=== PATIENT | male | born 1950 | race Caucasian/White ===

== ENCOUNTER → 2016-11-27 | Outpatient (CLI) | payer OTHER ==
[~2016-11-27] MED LIST: ALBUTEROL INHALER INH; AMLO10TA PO; AUGM875T27 PO; FOLI1TAB2 PO; LIPITOR; NITR4TASL SL; SERAX PO; VICODIN PO; VITA100T2 PO
--- NOTE | 2016-11-27 08:27 | REP ---
Clinical: Back pain. Technique: AP lateral and coned-down views of the lumbosacral spine. Comparison: 05/25/2015. Findings: Moderate to advanced multilevel degenerative disc osteophyte complexes are noted throughout the lower thoracic and lumbosacral spine which appear relatively stable. Findings include osteophytosis, endplate sclerosis, disc space narrowing and hypertrophic facet changes. Alignment and lordosis maintained. There is no evidence for acute fracture / compression injury or subluxation. Impression: Stable moderate to advanced multilevel degenerative changes similar to 05/25/2015. No acute fracture / compression injury or subluxation. Signed by Abdulkadir Garrido MD 11/27/2016 08:19 A
[2016-11-27 09:05] LABS: ALBUMIN 3.7 GM/DL (3.2-5.2); ALBUMIN/GLOBULIN RATIO 1.12 (1.00-1.93); ALKALINE PHOSPHATASE 78 U/L (45-117); ALT/SGPT 22 U/L (12-78); ANION GAP 7 MEQ/L (8-16); AST/SGOT 16 U/L (15-37); BILIRUBIN,TOTAL 0.6 MG/DL (0.2-1.0); BLOOD UREA NITROGEN 14 MG/DL (7-18); CALCIUM LEVEL 8.8 MG/DL (8.8-10.2); CARBON DIOXIDE LEVEL 29 MEQ/L (21-32); CHLORIDE LEVEL 105 MEQ/L (98-107); CREATININE FOR GFR 0.83 MG/DL (0.70-1.30); GLOMERULAR FILTRATION RATE > 60.0 (>49); GLUCOSE, FASTING 93 MG/DL (80-110); POTASSIUM SERUM 4.3 MEQ/L (3.5-5.1); SODIUM LEVEL 141 MEQ/L (136-145)
[2016-11-27 11:34] LABS: BASO # 0.1 K/mm3 (0.0-0.2); BASO % 0.5 % (0.0-1.0); LARGE UNSTAINED CELL # 0.2 K/mm3 (0.0-0.4); LARGE UNSTAINED CELL % 1.9 % (0.0-4.0); LYMPH # 3.6 K/mm3 (1.5-4.5); LYMPH % 29.6 % (24.0-44.0); MEAN CORPUSCULAR HEMOGLOBIN 32.2 pg (27.0-33.0); MEAN CORPUSCULAR HGB CONC 34.2 g/dl (32.0-36.5); MEAN CORPUSCULAR VOLUME 94.2 fl (80.0-96.0); MONO # 0.7 K/mm3 (0.0-0.8); MONO % 5.7 % (0.0-5.0); NEUTROPHILS # 6.7 K/mm3 (1.8-7.7); NEUTROPHILS % 54.3 % (36.0-66.0); PLATELET COUNT, AUTOMATED 248 k/mm3 (150-450); RED CELL DISTRIBUTION WIDTH 12.9 % (11.5-14.5); WHITE BLOOD COUNT 12.3 K/mm3 (4.0-10.0)
== END ==
LOC: M LAB 07:44
PROVIDERS: ATTEND Family Medicine Addiction Medicine
DX: I10 Essential (primary) hypertension (principal); M54.5 Low back pain

== ENCOUNTER → 2017-01-11 | Outpatient (CLI) | payer OTHER ==
[~2017-01-11] MED LIST changes: +ISOVUE-370 76% 100ML VIAL (Q9967) As Ordered ONE
--- NOTE | 2017-01-12 07:36 | REP ---
CT ANGIOGRAM OF THE CAROTIDS WITH IV CONTRAST: HISTORY: Carotid stenosis. Comparison study is a duplex carotid sonography from June 01, 2016. CT contrast dose: 75 mL of Isovue [address] TECHNIQUE: Helical scanning is acquired and 2 mm high resolution axial images are generated. Coronal and sagittal multiplanar re-formation images are regenerated. Coronal and sagittal MIP images are generated. Curved plane MPR images are obtained in a rotational fashion about the lumen of each carotid artery. In addition, surface rendered 3D imaging is generated. CT ANGIOGRAPHIC FINDINGS: There is some atherosclerotic vascular calcification at the origin of the innominate artery and the left subclavian artery from the thoracic aorta. Minimal calcification at the origin of the left internal carotid. The common carotid arteries are unremarkable bilaterally. On the right, there is moderate calcific and soft plaquing involving the bulb and proximal ICA producing 65% narrowing in the lumen of the proximal ICA within the plaque on the right side. The distal ICA on the right is unremarkable. There is some vascular calcification at the carotid siphon on the right. On the left, there is moderate to advanced mixed plaquing in the proximal ICA and bulb. There is a nearly pinpoint stenosis focally in the proximal ICA. The ICA lumen measures 2 mm at the level of the focal stenosis. Proximal to the stenosis it measures 11 mm. This is compatible with an 82% stenosis. The distal ICA on the left is unremarkable. Minimal atherosclerotic plaquing is seen in this carotid siphon on the left. IMPRESSION: 1. 82% focal stenosis in the left internal carotid artery, 1.6 cm from its origin from the carotid bulb. 2. 65% narrowing due to mixed plaquing in the proximal ICA on the right side. Signed by Anthony Boland MD 01/12/2017 08:13 A
== END ==
LOC: M RAD 17:59
PROVIDERS: ATTEND Surgery
DX: I65.22 Occlusion and stenosis of left carotid artery (principal)
CPT/HCPCS: 70498; Q9967

== ENCOUNTER → 2017-03-14 | Outpatient (CLI) | payer OTHER ==
[~2017-03-14] MED LIST changes: -AUGM875T27 PO; +AUGM875T28 PO; -FOLI1TAB2 PO; +FOLI1TAB4 PO; -ISOVUE-370 76% 100ML VIAL (Q9967) As Ordered ONE
--- NOTE | 2017-03-15 15:10 | ECGEPIP ---
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 Consider inferolateral myocardial ischemia. Decreased heart rate and more extensive repolarization abnormalities compared with 11/11/2014. Electronically Signed On 03-15-2017 15:10:14 EDT by Rajinder Sepulveda
== END ==
LOC: M EKG 10:21
PROVIDERS: ATTEND Family Medicine Addiction Medicine
DX: I10 Essential (primary) hypertension (principal)

== ENCOUNTER → 2017-03-14 | Outpatient (REF) | payer OTHER ==
[2017-03-14 09:29] LABS: BASO # 0.1 K/mm3 (0.0-0.2); BASO % 0.8 % (0.0-1.0); EOS # 0.5 K/mm3 (0.0-0.50); EOS % 4.1 % (0.0-3.0); LARGE UNSTAINED CELL # 0.2 K/mm3 (0.0-0.4); LARGE UNSTAINED CELL % 1.8 % (0.0-4.0); LYMPH # 3.2 K/mm3 (1.5-4.5); LYMPH % 26.6 % (24.0-44.0); MEAN CORPUSCULAR HEMOGLOBIN 32.9 pg (27.0-33.0); MEAN CORPUSCULAR HGB CONC 34.3 g/dl (32.0-36.5); MEAN CORPUSCULAR VOLUME 95.9 fl (80.0-96.0); MONO # 0.7 K/mm3 (0.0-0.8); MONO % 6.1 % (0.0-5.0); NEUTROPHILS # 7.3 K/mm3 (1.8-7.7); NEUTROPHILS % 60.5 % (36.0-66.0); PLATELET COUNT, AUTOMATED 245 k/mm3 (150-450); RED CELL DISTRIBUTION WIDTH 12.9 % (11.5-14.5)
[2017-03-14 09:36] LABS: INR 0.97
[2017-03-14 09:43] LABS: ALBUMIN 3.6 GM/DL (3.2-5.2); ALBUMIN/GLOBULIN RATIO 1.16 (1.00-1.93); ALKALINE PHOSPHATASE 82 U/L (45-117); ALT/SGPT 15 U/L (12-78); ANION GAP 5 MEQ/L (8-16); AST/SGOT 11 U/L (15-37); BILIRUBIN,TOTAL 0.4 MG/DL (0.2-1.0); BLOOD UREA NITROGEN 12 MG/DL (7-18); CALCIUM LEVEL 9.2 MG/DL (8.8-10.2); CARBON DIOXIDE LEVEL 30 MEQ/L (21-32); CHLORIDE LEVEL 106 MEQ/L (98-107); CREATININE FOR GFR 0.88 MG/DL (0.70-1.30); GLOMERULAR FILTRATION RATE > 60.0 (>49); GLUCOSE, FASTING 104 MG/DL (80-110); POTASSIUM SERUM 4.5 MEQ/L (3.5-5.1); SODIUM LEVEL 141 MEQ/L (136-145); TOTAL PROTEIN 6.7 GM/DL (6.4-8.2)
== END ==
LOC: M LAB REF 09:19
PROVIDERS: ATTEND Family Medicine Addiction Medicine
DX: I10 Essential (primary) hypertension (principal)

== ENCOUNTER → 2017-03-15 | Outpatient (CLI) | payer OTHER ==
--- NOTE | 2017-03-15 18:35 | ECHO ---
DATE OF PROCEDURE: 03/15/2017 REFERRING PHYSICIAN: Levi Montemayor. INDICATION: Aortic stenosis. Study was performed on March 15 on outpatient basis. HEIGHT: 160 cm. WEIGHT: 77 kg. DIMENSIONS: IVS: 1.2 LV: 4.7 LVPW: 1.2 LA: 4.8 Aorta: 3.1 FINDINGS: The study is of acceptable technical quality even though parasternal views are very limited. Left ventricle is of normal size and contractility with estimated EF 65-70%. Mild left ventricular hypertrophy is noted. Right ventricle does not appear enlarged. Left atrium is moderately enlarged, right atrium is probably normal but the visualization was limited. No pericardial effusion is noted. Aortic valve is heavily calcific but I cannot comment on details of its anatomy due to limitations of the imaging. There are also degenerative abnormalities of the mitral valve with mitral annular calcifications. Mobility of mitral leaflets is preserved. Tricuspid valve appears normal. Pulmonic valve was not seen. Inferior vena cava is dilated but collapses with respiration indicative of likely mildly elevated central venous pressure. Aortic root is normal. Aortic arch and abdominal aorta were not visualized. Doppler interrogation of aortic valve reveals trivial insufficiency and severe if not critical stenosis. Peak gradient across the valve is 83 and mean gradient 53 mmHg. Calculated aortic valve area is 0.5 cm2. There is mild mitral insufficiency and mild tricuspid insufficiency. Calculated pulmonary artery pressure is normal mildly elevated. Mitral inflow pattern and tissue Doppler imaging of mitral annulus reveal pseudo normal filling pattern indicative of likely elevated left ventricular end-diastolic pressure. CONCLUSIONS: 1. Study is of acceptable technical quality. 2. Normal LV size with mild LVH and preserved LV systolic function. Grade 2 diastolic dysfunction. 3. Calcific aortic stenosis, likely severe if not critical (mean gradient 53 mmHg, calculated aortic valve area 0.5 cm square). 4. No further significant valvular disease. 5. Likely elevated central venous pressure but normal mildly elevated pulmonary artery pressure. COMMENT: Subacute bacterial endocarditis (SBE) prophylaxis is not recommended. If any symptoms, the patient should be considered for aortic valve replacement. MTDD
== END ==
LOC: M CARPUL 08:40
PROVIDERS: ATTEND Family Medicine Addiction Medicine
DX: I35.0 Nonrheumatic aortic (valve) stenosis (principal)

== ENCOUNTER → 2017-05-02 | Outpatient (CLI) | payer OTHER ==
[2017-05-02 10:44] LABS: BASO # 0.1 K/mm3 (0.0-0.2); BASO % 0.6 % (0.0-1.0); EOS # 0.5 K/mm3 (0.0-0.50); EOS % 5.4 % (0.0-3.0); LARGE UNSTAINED CELL # 0.2 K/mm3 (0.0-0.4); LARGE UNSTAINED CELL % 1.9 % (0.0-4.0); LYMPH # 2.9 K/mm3 (1.5-4.5); LYMPH % 29.3 % (24.0-44.0); MEAN CORPUSCULAR HEMOGLOBIN 32.8 pg (27.0-33.0); MEAN CORPUSCULAR VOLUME 93.7 fl (80.0-96.0); MONO # 0.6 K/mm3 (0.0-0.8); MONO % 6.5 % (0.0-5.0); NEUTROPHILS # 5.5 K/mm3 (1.8-7.7); NEUTROPHILS % 56.3 % (36.0-66.0); PLATELET COUNT, AUTOMATED 222 k/mm3 (150-450); RED CELL DISTRIBUTION WIDTH 12.7 % (11.5-14.5); WHITE BLOOD COUNT 9.8 K/mm3 (4.0-10.0)
[2017-05-02 11:11] LABS: ANION GAP 6 MEQ/L (8-16); BLOOD UREA NITROGEN 11 MG/DL (7-18); CALCIUM LEVEL 9.1 MG/DL (8.8-10.2); CARBON DIOXIDE LEVEL 32 MEQ/L (21-32); CHLORIDE LEVEL 104 MEQ/L (98-107); GLOMERULAR FILTRATION RATE > 60.0 (>49); GLUCOSE, FASTING 102 MG/DL (80-110); POTASSIUM SERUM 4.2 MEQ/L (3.5-5.1); SODIUM LEVEL 142 MEQ/L (136-145)
== END ==
LOC: M LAB 09:15
PROVIDERS: ATTEND Internal Medicine Cardiovascular Disease
DX: R93.1 Abnormal findings on diagnostic imaging of heart and coronary circulation (principal)

== ENCOUNTER → 2017-06-02 | Outpatient (CLI) | payer OTHER ==
[2017-06-02 08:34] LABS: MEAN CORPUSCULAR HEMOGLOBIN 32.1 pg (27.0-33.0); MEAN CORPUSCULAR HGB CONC 33.5 g/dl (32.0-36.5); MEAN CORPUSCULAR VOLUME 95.7 fl (80.0-96.0); PLATELET COUNT, AUTOMATED 400 10^3/uL (150-450); RED CELL DISTRIBUTION WIDTH 14.4 % (11.5-14.5); WHITE BLOOD COUNT 16.8 10^3/uL (4.0-10.0)
[2017-06-02 08:40] LABS: ADD MANUAL DIFFER YES; DIFF SLIDE NUMBER 121
[2017-06-02 09:02] LABS: INR 1.6
[2017-06-02 09:27] LABS: EOSINOPHILS 2 % (0-5)
== END ==
LOC: M LAB 08:05
PROVIDERS: ATTEND Physician Assistant
DX: I48.91 Unspecified atrial fibrillation (principal)

== ENCOUNTER → 2019-03-24 | Outpatient (REF) | payer MEDICARE, MEDICAID ==
[~2019-03-24] MED LIST changes: +FOLI1TAB11 PO; -FOLI1TAB4 PO; -VITA100T2 PO; +VITA100T8 PO
[2019-03-24 12:45] LABS: BASO # 0.1 10^3/uL (0.0-0.2); EOS # 0.3 10^3/uL (0.0-0.50); EOS % 2.7 % (0.0-3.0); HEMATOCRIT 56.2 % (42.0-52.0); HEMOGLOBIN 18.8 g/dl (13.5-17.5); LYMPH # 3.5 10^3/uL (1.5-4.5); LYMPH % 29.8 % (24.0-44.0); MEAN CORPUSCULAR HEMOGLOBIN 32.6 pg (27.0-33.0); MEAN CORPUSCULAR HGB CONC 33.5 g/dl (32.0-36.5); MEAN CORPUSCULAR VOLUME 97.4 fl (80.0-96.0); MONO # 0.7 10^3/uL (0.0-0.8); MONO % 5.9 % (0.0-5.0); NEUTROPHILS % 60.3 % (36.0-66.0); PLATELET COUNT, AUTOMATED 206 10^3/uL (150-450); RED BLOOD COUNT 5.77 10^6/uL (4.30-6.10); WHITE BLOOD COUNT 11.7 10^3/uL (4.0-10.0)
[2019-03-24 13:00] LABS: ALBUMIN 3.8 GM/DL (3.2-5.2); ALT/SGPT 22 U/L (12-78); BILIRUBIN,TOTAL 0.4 MG/DL (0.2-1.0); BLOOD UREA NITROGEN 17 MG/DL (7-18); CALCIUM LEVEL 9.1 MG/DL (8.8-10.2); CARBON DIOXIDE LEVEL 31 MEQ/L (21-32); CHLORIDE LEVEL 107 MEQ/L (98-107); CHOLESTEROL LEVEL 231 MG/DL (<200); CREATININE FOR GFR 0.99 MG/DL (0.70-1.30); GLOMERULAR FILTRATION RATE > 60.0 (>49); GLUCOSE, FASTING 94 MG/DL (70-100); HDL CHOLESTEROL 35 MG/DL (>40); LDL CHOLESTEROL 164 MG/DL (<100); NON-HDL-C 196 MG/DL; POTASSIUM SERUM 4.8 MEQ/L (3.5-5.1); SODIUM LEVEL 143 MEQ/L (136-145); TOTAL PROTEIN 7.3 GM/DL (6.4-8.2); TRIGLYCERIDES LEVEL 162 MG/DL (<150)
[2019-03-24 13:04] LABS: HEMOGLOBIN A1c 6.2 %
== END ==
LOC: M LAB REF 12:11
PROVIDERS: ATTEND Family Medicine Addiction Medicine
DX: Z00.00 Encounter for general adult medical examination without abnormal findings (principal); E07.9 Disorder of thyroid, unspecified; E78.00 Pure hypercholesterolemia, unspecified

== ENCOUNTER → 2019-11-12 | Outpatient (CLI) | payer MEDICARE, OTHER, MEDICAID ==
--- NOTE | 2019-11-14 02:14 | ECWPNPC ---
PATIENT NAME: LIZ OSBORNE : 1950 GENDER: MALE VISIT DATE: 11/12/2019 DISCHARGE DATE: 11/12/19 1111 VISIT LOCKED DATE TIME: PHYSICIAN: ENZO BURKETT RESOURCE: ENZO BURKETT REASON FOR APPOINTMENT 1. BACK PAIN HISTORY OF PRESENT ILLNESS PAIN SCREENING: PATIENT HAS A COMPLAINT OF ACUTE OR CHRONIC PAIN :YES LOCATION OF PAIN:OTHER: LOWER LEFT BACK SIDE THRU TO THE LEG INTENSITY OF PAIN (SCALE OF 1 TO 10):8 WHAT DOES YOUR PAIN FEEL LIKE:ACHING DURATION:INTERMITTENT, AWAKENS FROM SLEEP PLAN/GOALS/TREATMENT/INTERVENTION/FOLLOW UP:SEE PLAN 69-YEAR-OLD MALE IN FOR INITIAL PAIN CONSULT. HE DENIES HISTORY OF DIRECT TRAUMA TO THE BACK. HE IS CURRENTLY ON HYDROCODONE AND ADMITS THAT THIS IS HELPFUL HOWEVER HE IS INTERESTED IN HAVING A PROCEDURE DONE TO HELP ALLEVIATE HIS PAIN SYMPTOMS MORE. HE RATES HIS PAIN CURRENTLY AT A 8 OUT OF 10 AND DESCRIBES IT ACHING. HE DOES ADMIT TO RADICULAR SYMPTOMS DOWN THE LEFT LEG. THE PAIN HAS BEEN PRESENT FOR SEVERAL YEARS HIS LAST IMAGING DONE IN 2017. FALL RISK SCREENING: SCREENING :NO FALLS REPORTED IN THE LAST YEAR CURRENT MEDICATIONS TAKING SIMVASTATIN 10 MG TABLET 1 TABLET IN THE EVENING ORALLY ONCE A DAY TAKING LISINOPRIL 10 MG TABLET 1 TABLET ORALLY ONCE A DAY TAKING ASPIR-LOW 81 MG TABLET DELAYED RELEASE 1 TABLET ORALLY ONCE A DAY TAKING HYDROCODONE-ACETAMINOPHEN 5-325 MG TABLET 1 TABLET NEEDED ORALLY EVERY 6 HRS MEDICATION LIST REVIEWED AND RECONCILED WITH THE PATIENT PAST MEDICAL HISTORY HYPERTENSION STROKE- OPEN HEART SURGERY ALLERGIES N.K.D.A. SURGICAL HISTORY OPEN HEART SURGERY- PIG VALVE 2017 LEFT CAROTID ENDARARECTOMY 2018 TESTICUALR SURGERY AFTER INJURY 1979 FAMILY HISTORY FATHER: 64 YRS MOTHER: 1 SON(S) , 3 DAUGHTER(S) - HEALTHY. FATHER- STROKE MOTHER- CANCER 3 SIBLINGS - HEART ISSUES, 2 SISTERS COPD. SOCIAL HISTORY GENERAL: TOBACCO USE ARE YOU A:CURRENT SMOKER ARE YOU INTERESTED IN QUITTING?NOT READY TO QUIT COUNSELED THE PATIENT ON SMOKING EFFECTS, EDUCATION [id number]/11/2020 HOW MANY CIGARETTES A DAY DO YOU SMOKE?31 OR MORE HOW SOON AFTER YOU WAKE UP DO YOU SMOKE YOUR FIRST CIGARETTE?6-30 MIN HOW OFTEN DO YOU SMOKE CIGARETTES?EVERY DAY PATIENT COUNSELED ON THE DANGERS OF TOBACCO USE AND URGED TO QUIT:11/12/2019 SMOKING CESSATION INFORMATION GIVEN11/12/2019 VAPORNO E-CIGARETTENO OTHERS AT HOME: SPOUSE. EDUCATION LEVEL OF EDUCATION:[employer] DIET: REGULAR. LANGUAGE LANGUAGES SPOKEN:TURKISH RECREATIONAL DRUG USE DRUG USE?NO PATIENT DENIES ABUSE OR MISSUSED OF ANY MEDICATION DENIES PATIENT DENIES USE OF ANY ILLEGAL SUBSTANCE INCLUDING MARIJUANA OR COCAINE DENIES EXERCISE: NO REGULAR EXERCISE. LEARNING BARRIERS / SPECIAL NEEDS BARRIERS TO LEARNING?NO HEARING IMPAIRED?NO VISION IMPAIRED?YES :CORRECTIVE LENSES COGNITIVELY IMPAIRED?NO READINESS TO LEARN?YES LEARNING PREFERENCES?NO LEARNING CAPABILITIES PRESENT?YES EMOTIONAL BARRIERS?NO SPECIAL DEVICES?NO SKATE HOP NEEDED?NO PAIN CLINIC PFS, CLERGY, PUBLIC HEALTH REFERRALS PFS REFERRAL NEEDED?NO CLERGY REFERRAL NEEDED?NO PUBLIC HEALTH REFERRAL NEEDED?NO WAS THE PROVIDER NOTIFIED OF ANY PERTINENT INFO?YES HAS THE PATIENT BEEN EDUCATED REGARDING HIS/HER PLAN OF CARE?YES HAS THE PATIENT BEEN EDUCATED REGARDING PAIN, THE RISK FOR PAIN, THE IMPORTANCE OF EFFECTIVE PAIN MANAGEMENT, AND THE PAIN ASSESSMENT PROCESS?YES LATEX QUESTIONNAIRE LATEX ALLERGY : HAVE YOU EVER DEVELOPED ANY TYPE OF REACTION AFTER HANDLING LATEX PRODUCTS SUCH RUBBER GLOVES, CONDOMS, DIAPHRAGMS, BALLOONS, SOCKS, OR UNDERWEAR?NO LATEX ALLERGY : HAVE YOU EVER DEVELOPED ANY TYPE OF REACTION DURING OR AFTER DENTAL APPOINTMENT, VAGINAL/RECTAL EXAMINATION, SURGICAL PROCEDURE, OR ANY OTHER EXPOSURE?NO LATEX RISK : HAVE YOU EVER HAD ANY DIFFICULTY BREATHING OR HIVES AFTER EATING OR HANDLING ANY FRUITS, OR VEGETABLES; SUCH KIWI, BANANAS, STONE FRUITS, OR CHESTNUTSNO LATEX RISK : DO YOU HAVE A PREVIOUS PERSONAL HISTORY OF MORE THAN NINE SURGERIES, SPINA BIFIDA, OR REPEATED CATHERIZATIONS? NO LATEX RISK : ARE YOU FREQUENTLY EXPOSED TO LATEX PRODUCTS IN YOUR OCCUPATION?NO DATE ASKED : 11/11/2019 CAFFEINE CAFFEINE USE?YES HOW OFTEN AND HOW MUCH? 3/DAY ADVANCE DIRECTIVE ADVANCE DIRECTIVE DISCUSSED WITH PATIENT:YES HCP- - BILL MANDAEN MANDAEN NO PROTESTANT BELIEFS THAT WOULD IMPACT HEALTH CARE. MARITAL STATUS: . ALCOHOL SCREENING DID YOU HAVE A DRINK CONTAINING ALCOHOL IN THE PAST YEAR?NO POINTS0 INTERPRETATIONNEGATIVE OCCUPATION: DISABELED. HOSPITALIZATION/MAJOR DIAGNOSTIC PROCEDURE SURGERIES STROKE 2013 REVIEW OF SYSTEMS REVIEWED BY: PROVIDER: BELL MARCANO . CONSTITUTIONAL: ANY CHANGE IN YOUR MEDICAL CONDITION? NO . CHILLS NO . FEVER NO . INFECTION: DO YOU HAVE NEW INFECTIONS? NO . DO YOU HAVE HISTORY OF MRSA? NO . MUSCULOSKELETAL: ANY NEW PATTERNS OF PAIN OR NUMBNESS? NO . SYTEMIC LUPUS NO . GASTROENTEROLOGY: ANY NEW CHANGE IN BOWEL CONTROL? NO . BARRETTS ESOPHAGUS NO . CIRRHOSIS NO . HEPATITIS NO . LIVER FAILURE NO . ACID REFLUX NO . UNEXPLAINED WEIGHT LOSS NO . GENITOURINARY: ANY NEW CHANGE IN BLADDER CONTROL? NO . IS THERE A CHANCE YOU COULD BE ? NO . HEMATOLOGY/LYMPH: DO YOU TAKE ANY BLOOD THINNERS? (FOR EXAMPLE- COUMADIN, PLAVIX, AGGRENOX, PLATEL, PRADAXA, OR XARELTO) NO . WHEN WAS YOUR LAST DOSE? DATE: TIME: . LOW PLATELET COUNT NO . SICKLE CELL DISEASE NO . VON WILLIEBRANDS NO . FACTOR V LEIDEN NO . THALLASEMIA NO . ANEMIA NO . EASY BRUISING NO . NEUROLOGY: HAVE YOU FALLEN IN THE PAST 12 MONTHS? NO . ANY NEW EXTREMITY NUMBNESS OR WEAKNESS? NO . HEAD INJURY NO . DEMENTIA NO . CEREBRAL PALSY NO . MULTIPLE SCLEROSIS NO . DIZZINESS NO . HEADACHE NO . STROKES NO . VERTIGO NO . CARDIOLOGY: DO YOU HAVE A PACEMAKER OR DEFIBRILLATOR? NO . ANGINA NO . HEART ATTACK NO . HEART SURGERY NO . CONGESTIVE HEART FAILURE/FLUID OVERLOAD NO . CHEST PAIN NO . HIGH BLOOD PRESSURE NO . IRREGULAR HEART BEAT NO . RESPIRATORY: HAVE YOU BEEN SICK IN THE PAST WEEK? NO . FEVER NO . FLU LIKE SYMPTOMS? NO . CPAP NO . BYPAP NO . ASTHMA NO . EMPHYSEMA NO . CHRONIC LUNG DISEASES NO . SHORTNESS OF BREATH ON EXERTION NO . COUGH NO . SNORING NO . INTEGUMENTARY: DO YOU HAVE ANY RASHES OR OPEN SORES? NO . ALLERGIC/IMMUNO: ARE YOU ALLERGIC TO IV DYE? NO . ANY NEW ALLERGIES? NO . PSYCHIATRIC: DO YOU HAVE THOUGHTS OF HURTING YOURSELF OR SOMEONE ELSE? NO . ARE YOU ABUSED, NEGLECTED, OR IN AN UNSAFE ENVIRONMENT? NO . ENDOCRINOLOGY: ARE YOU DIABETIC? NO . THYROID DISORDER NO . OTHER: DO YOU NEED ANY PRESCRIPTIONS? YES, . IF YES, PLEASE LIST: ____ . ANY NEW PROBLEMS WITH YOUR MEDICATIONS? NO . WHEN DID YOU LAST EAT? ____ . WHEN DID YOU LAST DRINK? ____ . WHAT DID YOU LAST DRINK? ____ . NAME OF PERSON DRIVING YOU HOME? ____ . DO YOU HAVE ANY OTHER QUESTIONS OR CONCERNS YES, NEEDS TO DISCUSS PAIN MANAGEMENT OPTIONS. PT. STATES HE TAKES HYDROCODONE THAT HELPS A LIITLE BIT. . VITAL SIGNS WT 165 LBS, HT 66 IN, BMI 26.63 INDEX, BP 130/65 MM HG, HR 65 /MIN, RR 18 /MIN, TEMP 97.0 F, OXYGEN SAT % 93, SAFE IN ENV? (Y/N) YES, REVIEWED BY: LAYA WICK LPN. EXAMINATION GENERAL EXAMINATION: GENERALNO ACUTE DISTRESS, WELL NOURISHED AND HYDRATED. PSYCHAPPROPRIATE MOOD AND AFFECT . LUNGS:CLEAR TO AUSCULTATION BILATERALLY, NO WHEEZES, RHONCHI, RALES. HEART:NO MURMURS, REGULAR RATE AND RHYTHM. BACK:DENIES POINT TENDERNESS ALONG LUMBAR SPINE, SURROUNDING SKIN SHOWS NO ERYTHEMA, ECCHYMOSIS, INCREASED WARMTH, AND/OR SKIN ERUPTIONS NOTED. POSITIVE MODIFIED SLR ON THE LEFT SIDE. . ASSESSMENTS RADICULOPATHY, LUMBOSACRAL REGION - M54.17 (PRIMARY) TREATMENT RADICULOPATHY, LUMBOSACRAL REGION [facility] MRI LUMBAR W/O CONTRAST (CPT [id number] CLINICAL NOTES: 69-YEAR-OLD MALE IN FOR INITIAL PAIN CONSULT. GIVEN PRESENTING SYMPTOMS AND RESULTS OF PHYSICAL EXAMINATION RECOMMENDED UPDATED MRI WITH FOLLOW-UP THEREAFTER. PATIENT HAS EXPRESSED UNDERSTANDING OF AND WAS IN AGREEMENT WITH TREATMENT PLAN. GIVEN TIME TO ASK QUESTIONS AND EXPRESS CONCERNS. PROCEDURE CODES FA211 ESTABILISHED PATIENT [facility] FACILITY CHARGE DISPOSITION & COMMUNICATION FOLLOW UP AFTER IMAGING (REASON: MRI OF THE LUMBAR SPINE) ELECTRONICALLY SIGNED BY MARIBELL MURPHY ON 11/13/2019 AT 08:24 AM EDT DISCLAIMER : THIS IS A VISIT SUMMARY EXTRACTED FROM THE [facility] CHART. IT IS NOT A COPY OF THE [facility] PROGRESS NOTE. MTDD
== END ==
LOC: M PAIN 10:00
PROVIDERS: ATTEND Family Medicine
DX: M54.17 Radiculopathy, lumbosacral region (principal)

== ENCOUNTER → 2020-12-22 | Outpatient (REF) | payer MEDICARE, OTHER, MEDICAID ==
[2020-12-22 12:28] LABS: BASO # 0.1 10^3/uL (0.0-0.2); BASO % 0.7 % (0.0-1.0); EOS # 0.4 10^3/uL (0.0-0.5); EOS % 3.1 % (0.0-3.0); HEMATOCRIT 56.6 % (42.0-52.0); LYMPH # 2.8 10^3/uL (1.5-5.0); LYMPH % 23.9 % (24.0-44.0); MEAN CORPUSCULAR HEMOGLOBIN 32.3 pg (27.0-33.0); MEAN CORPUSCULAR HGB CONC 33.6 g/dl (32.0-36.5); MEAN CORPUSCULAR VOLUME 96.3 fl (80.0-96.0); MONO # 0.9 10^3/uL (0.0-0.8); MONO % 7.6 % (2.0-8.0); NEUTROPHILS # 7.5 10^3/uL (1.5-8.5); NEUTROPHILS % 64.2 % (36.0-66.0); PLATELET COUNT, AUTOMATED 228 10^3/uL (150-450); RED BLOOD COUNT 5.88 10^6/uL (4.30-6.10); WHITE BLOOD COUNT 11.6 10^3/uL (4.0-10.0)
[2020-12-22 13:05] LABS: ALBUMIN 3.7 GM/DL (3.2-5.2); ALT/SGPT 18 U/L (12-78); BILIRUBIN,TOTAL 0.4 MG/DL (0.2-1.0); BLOOD UREA NITROGEN 16 MG/DL (7-18); CALCIUM LEVEL 8.8 MG/DL (8.8-10.2); CARBON DIOXIDE LEVEL 31 MEQ/L (21-32); CHLORIDE LEVEL 107 MEQ/L (98-107); CHOLESTEROL LEVEL 172 MG/DL (<200); CHOLESTEROL RISK RATIO 5.058 (<5); CREATININE FOR GFR 0.89 MG/DL (0.70-1.30); GLOMERULAR FILTRATION RATE > 60.0 (>49); GLUCOSE, FASTING 102 MG/DL (70-100); HDL CHOLESTEROL 34 MG/DL (>40); LDL CHOLESTEROL 115 MG/DL (<100); NON-HDL-C 138 MG/DL; POTASSIUM SERUM 4.8 MEQ/L (3.5-5.1); SODIUM LEVEL 141 MEQ/L (136-145); TOTAL PROTEIN 7.1 GM/DL (6.4-8.2); TRIGLYCERIDES LEVEL 113 MG/DL (<150)
== END ==
LOC: M LAB REF 11:17
PROVIDERS: ATTEND Family Medicine Addiction Medicine
DX: E78.5 Hyperlipidemia, unspecified (principal)

== ENCOUNTER 2023-11-05 12:11 | Emergency (ER) | payer MEDICARE, MEDICAID ==
[~2023-11-05] VITALS: Ht 160 cm; Wt 72.9 kg
[2023-11-05 13:16] LABS: BASO # 0.1 10^3/uL (0.0-0.2); BASO % 0.6 % (0.0-1.0); EOS # 0.4 10^3/uL (0.0-0.5); EOS % 3.2 % (0.0-3.0); HEMATOCRIT 54.9 % (42.0-52.0); HEMOGLOBIN 18.5 g/dl (13.5-17.5); LYMPH # 2.2 10^3/uL (1.5-5.0); LYMPH % 20.5 % (24.0-44.0); MEAN CORPUSCULAR HEMOGLOBIN 31.7 pg (27.0-33.0); MEAN CORPUSCULAR HGB CONC 33.7 g/dl (32.0-36.5); MEAN CORPUSCULAR VOLUME 94.2 fl (80.0-96.0); MONO # 0.7 10^3/uL (0.0-0.8); MONO % 6.8 % (2.0-8.0); NEUTROPHILS # 7.4 10^3/uL (1.5-8.5); NEUTROPHILS % 68.7 % (36.0-66.0); PLATELET COUNT, AUTOMATED 191 10^3/uL (150-450); RED BLOOD COUNT 5.83 10^6/uL (4.30-6.10); WHITE BLOOD COUNT 10.8 10^3/uL (4.0-10.0)
[2023-11-05 13:26] LABS: INR 1.11; PARTIAL THROMBOPLASTIN TIME 31.3 SECONDS (24.8-34.2)
[2023-11-05 13:42] LABS: CK-MB VALUE MASS 10.8 NG/ML (<3.6)
[2023-11-05 13:44] LABS: ALBUMIN 3.2 G/DL (3.2-5.2); ALKALINE PHOSPHATASE 74 U/L (46-116); ALT/SGPT 13 U/L (7.0-40); AST/SGOT 23 U/L (<34); BILIRUBIN,DIRECT 0.2 MG/DL (<0.4); BILIRUBIN,TOTAL 0.7 MG/DL (0.3-1.2); BLOOD UREA NITROGEN 13 MG/DL (9-23); CALCIUM LEVEL 8.2 MG/DL (8.3-10.6); CARBON DIOXIDE LEVEL 32 MMOL/L (20-31); CHLORIDE LEVEL 105 MMOL/L (98-107); CREATININE FOR GFR 0.78 MG/DL (0.70-1.30); GLOMERULAR FILTRATION RATE > 60.0 (>42); GLUCOSE, FASTING 102 MG/DL (74-106); POTASSIUM SERUM 4.7 MMOL/L (3.5-5.1); SODIUM LEVEL 141 MMOL/L (136-145); TOTAL PROTEIN 6.4 G/DL (5.7-8.2)
[2023-11-05 13:46] LABS: THYROID STIMULATING HORMONE 1.027 uIU/ML (0.55-4.78)
[2023-11-05 13:50] LABS: CPK CREATINE PHOSPHOKINASE 122 U/L (46-171); MB/CK RELATIVE INDEX 8.85 (< OR =4)
[2023-11-05 14:37] LABS: CK-MB VALUE MASS 10.3 NG/ML (<3.6); MB/CK RELATIVE INDEX 4.17 (< OR =4)
[2023-11-05 14:55] VITALS: BP 180/96
[2023-11-05] MEDS: NITROGLYCERIN 0.4MG SUBL TABLET SL PRN (14:55)
[2023-11-05] MEDS: ASPIRIN 325 MG TAB PO ONE (14:57)
[2023-11-05] MEDS: HEPARIN DRIP 25,000 UNITS in IV 1 EA IV SCH (15:11)
[2023-11-05] MEDS: HEPARIN SOD (PORCINE) 5000UNITS/ML 1ML VIAL/SYRINGE IV ONE (15:12)
[2023-11-05 15:13] LABS: RSV AMPLIFICATION NEGATIVE (NEGATIVE)
[2023-11-05 17:00] VITALS: BP 163/81; TEMP 97.5; O2SAT 94
== END 2023-11-05 17:04 | disposition short-term general hospital (02) ==
LOC: EDBD 12:11 → M ED 12:11
DX: I21.4 Non-ST elevation (NSTEMI) myocardial infarction (principal); I25.2 Old myocardial infarction; I10 Essential (primary) hypertension; J45.909 Unspecified asthma, uncomplicated; E78.5 Hyperlipidemia, unspecified; F17.210 Nicotine dependence, cigarettes, uncomplicated

== ENCOUNTER 2025-08-20 12:53 | Inpatient (IN) | payer MEDICARE, MEDICAID ==
[~2025-08-20] VITALS: Ht 162.6 cm; Wt 68.5 kg
[2025-08-20] VITALS (10 sets, daily range): BP systolic 102–145; BP diastolic 57–83; TEMP 98; O2SAT 86–95
[~2025-08-20 12:53] MED LIST changes: +AMLO-751 PO; -AMLO10TA PO
[2025-08-20 13:42] LABS: BASO # 0.1 10^3/uL (0.0-0.2); BASO % 0.5 % (0.0-1.0); EOS # 0.0 10^3/uL (0.0-0.5); EOS % 0.1 % (0.0-3.0); LYMPH # 1.2 10^3/uL (1.5-5.0); LYMPH % 9.2 % (24.0-44.0); MONO # 1.0 10^3/uL (0.0-0.8); MONO % 7.6 % (2.0-8.0); NEUTROPHILS # 10.3 10^3/uL (1.5-8.5); NEUTROPHILS % 82.4 % (36.0-66.0); PLATELET COUNT, AUTOMATED 177 10^3/uL (150-450)
[2025-08-20 14:10] LABS: ALT/SGPT 14.0 U/L (7.0-40); AST/SGOT 25.0 U/L (<34); CALCIUM LEVEL 7.4 MG/DL (8.3-10.6); CARBON DIOXIDE LEVEL 29.0 MMOL/L (20-31); CHLORIDE LEVEL 104.0 MMOL/L (98-107); CREATININE FOR GFR 1.27 MG/DL (0.70-1.30); GLOMERULAR FILTRATION RATE 59.7 (>42); POTASSIUM SERUM 4.3 MMOL/L (3.5-5.1); SODIUM LEVEL 141.0 MMOL/L (136-145)
[2025-08-20] MEDS ORDERED: CLOP75TA2 PO (15:45)
[2025-08-20] MEDS ORDERED: JARD1TAB PO (15:45)
[2025-08-20] MEDS ORDERED: LISI20TA33 PO (15:45)
[2025-08-20] MEDS ORDERED: SPIR-10 PO (15:45)
[2025-08-20] MEDS ORDERED: VENTAER INH (15:45)
[2025-08-20] MEDS ORDERED: ATOR80TA59 PO (15:45)
[2025-08-20] MEDS ORDERED: CARV3.12 PO (15:45)
[2025-08-20] MEDS ORDERED: ISOVUE-370 76% 100 ML VIAL As Ordered ONE (16:29)
[2025-08-20 16:33] LABS: CK-MB VALUE MASS 3.7 NG/ML (<3.6)
[2025-08-20] MEDS: IPRATROPIUM 0.5 MG/ALBUTEROL 2.5 MG INH SOL UD 3 ML NEB ONE ×2 (16:34→19:00)
[2025-08-20 16:50] LABS: VENOUS BASE EXCESS 1.1 (-2.0-2.0); VENOUS HCO3 30.3 MMOL/L (23.0-27.0); VENOUS O2 SATURATION 64.5 % (60.0-80.0); VENOUS PARTIAL PRESSURE CO2 63.7 mmHg (38.0-50.0); VENOUS PARTIAL PRESSURE O2 36.9 mmHg (30.0-50.0); VENOUS PH 7.295 UNITS (7.330-7.430); VENOUS STANDARD HCO3 24.2 MMOL/L; VENOUS TOTAL CO2 32.2 MMOL/L (24.0-28.0)
[2025-08-20 16:58] LABS: KETONE, URINE AUTO RFX NEGATIVE (NEGATIVE); LEUKOCYTE ESTERASE UR AUTO RFX NEGATIVE (NEGATIVE); MUCUS, URINE RFX SMALL (NEGATIVE); NITRITE, URINE AUTO RFX NEGATIVE (NEGATIVE); RBC, URINE AUTO RFX 1 /HPF (0-3); SQUAM EPITHELIAL CELL UR AURFX 0 /HPF (0-6); WBC, URINE AUTO RFX 1 /HPF (0-3)
[2025-08-20 16:59] LABS: CPK CREATINE PHOSPHOKINASE 161.0 U/L (46-171); MB/CK RELATIVE INDEX 2.29 (< OR =4)
[2025-08-20] MEDS: PIPERACILLIN/TAZOBACTAM SOD 4.5 GM in DEXTROSE 5% (D5W) ADV/MINI-BAG 50 ML IV ONE (17:03)
[2025-08-20] MEDS: ACETAMINOPHEN *IV* 1,000 MG in IV 1 EA IV ONE (17:03)
[2025-08-20 17:26] LABS: CK-MB VALUE MASS 3.7 NG/ML (<3.6); CPK CREATINE PHOSPHOKINASE 228.0 U/L (46-171); MB/CK RELATIVE INDEX 1.62 (< OR =4)
[2025-08-20] MEDS ORDERED: NS (Normal Saline) 0.9% 1,000 ML IV SCH ×2 (17:50→18:50)
[2025-08-20] MEDS ORDERED: HOME MED LIST COMPLETE! XX SCH (18:05)
[2025-08-20] MEDS: VANCOMYCIN HCL 1,000 MG, VIAL MATE ADAPTER 1 EACH in NS 250 ML IV ONE (18:17)
[2025-08-20] MEDS: NS (Normal Saline) 0.9% 1,800 ML in IV 1 EA IV STA (18:19)
[2025-08-20 19:19] LABS: VENOUS BASE EXCESS -4.7 (-2.0-2.0); VENOUS HCO3 23.0 MMOL/L (23.0-27.0); VENOUS O2 SATURATION 87.6 % (60.0-80.0); VENOUS PARTIAL PRESSURE CO2 51.7 mmHg (38.0-50.0); VENOUS PARTIAL PRESSURE O2 61.3 mmHg (30.0-50.0); VENOUS PH 7.266 UNITS (7.330-7.430); VENOUS STANDARD HCO3 20.4 MMOL/L; VENOUS TOTAL CO2 24.6 MMOL/L (24.0-28.0)
[2025-08-20 19:32] LABS: BASO # 0.0 10^3/uL (0.0-0.2); BASO % 0.2 % (0.0-1.0); EOS # 0.0 10^3/uL (0.0-0.5); EOS % 0.1 % (0.0-3.0); LYMPH # 1.3 10^3/uL (1.5-5.0); LYMPH % 10.3 % (24.0-44.0); MONO # 1.3 10^3/uL (0.0-0.8); MONO % 10.3 % (2.0-8.0); NEUTROPHILS # 9.5 10^3/uL (1.5-8.5); NEUTROPHILS % 78.8 % (36.0-66.0); PLATELET COUNT, AUTOMATED 150 10^3/uL (150-450)
[2025-08-20 19:45] LABS: CALCIUM LEVEL 6.8 MG/DL (8.3-10.6); CARBON DIOXIDE LEVEL 26.0 MMOL/L (20-31); CHLORIDE LEVEL 107.0 MMOL/L (98-107); CREATININE FOR GFR 1.22 MG/DL (0.70-1.30); GLOMERULAR FILTRATION RATE 62.6 (>42); POTASSIUM SERUM 4.3 MMOL/L (3.5-5.1); SODIUM LEVEL 142.0 MMOL/L (136-145)
[2025-08-20] MEDS ORDERED: LEVALBUTEROL 1.25 MG 0.5ML CONCENTRATE NEB NEB PRN (20:25)
[2025-08-20] MEDS: NOREPINEPHRINE 4MG IN D5 250ML 4 MG in IV 1 EA IV SCH (21:13)
[2025-08-21] VITALS (22 sets, daily range): BP systolic 97–204; BP diastolic 54–110; TEMP 97.6–98.4; O2SAT 85–97
[2025-08-21] MEDS: VANCOMYCIN HCL 1,000 MG, VIAL MATE ADAPTER 1 EACH in NS 250 ML IV SCH (03:15)
[2025-08-21 04:24] LABS: BASO # 0.1 10^3/uL (0.0-0.2); BASO % 0.3 % (0.0-1.0); EOS # 0.0 10^3/uL (0.0-0.5); EOS % 0.1 % (0.0-3.0); LYMPH # 1.2 10^3/uL (1.5-5.0); LYMPH % 8.3 % (24.0-44.0); MONO # 1.3 10^3/uL (0.0-0.8); MONO % 9.1 % (2.0-8.0); NEUTROPHILS # 12.0 10^3/uL (1.5-8.5); NEUTROPHILS % 81.9 % (36.0-66.0); PLATELET COUNT, AUTOMATED 147 10^3/uL (150-450)
[2025-08-21 04:53] LABS: CALCIUM LEVEL 7.1 MG/DL (8.3-10.6); CARBON DIOXIDE LEVEL 26.0 MMOL/L (20-31); CHLORIDE LEVEL 107.0 MMOL/L (98-107); CREATININE FOR GFR 0.93 MG/DL (0.70-1.30); GLOMERULAR FILTRATION RATE 86.7 (>42); MAGNESIUM LEVEL 2.0 MG/DL (1.8-2.4); PHOSPHORUS LEVEL 3.1 MG/DL (2.4-5.1); POTASSIUM SERUM 4.3 MMOL/L (3.5-5.1); SODIUM LEVEL 142.0 MMOL/L (136-145)
[2025-08-21] MEDS: HEPARIN SOD 5000 UNITS/ML 1 ML VIAL/SYRINGE SC SCH (05:54)
[2025-08-21] MEDS: IPRATROPIUM 0.5 MG/2.5 ML (0.02%) SOLN NEB NEB SCH (08:06)
[2025-08-21] MEDS: NICOTINE 14 MG/24 HR TRANSDERMAL TD SCH (09:04)
[2025-08-21] MEDS: CLOPIDOGREL 75 MG TAB PO ONE (09:04)
[2025-08-21] MEDS: AZITHROMYCIN 250 MG TABLET PO SCH (10:12)
[2025-08-21] MEDS: ATORVASTATIN 20 MG TAB PO SCH (10:13)
[2025-08-21] MEDS: cefTRIAXone SOD 1 GM in DEXTROSE 5% (D5W) ADV/MINI-BAG 50 ML IV SCH (10:13)
[2025-08-21] MEDS: IPRATROPIUM 0.5 MG/ALBUTEROL 2.5 MG INH SOL UD 3 ML NEB SCH (11:28)
[2025-08-21] MEDS: guaiFENesin ER TABLET 600 MG TAB PO ONE (16:15)
[2025-08-21] MEDS: BUDESONIDE 0.5 MG/2 ML INHALATION SUSPENSION NEB SCH (19:50)
[2025-08-21] MEDS: APIXABAN 5 MG TAB PO SCH (21:24)
[2025-08-22] VITALS (7 sets, daily range): BP systolic 124–155; BP diastolic 61–84; TEMP 97.1–97.9; O2SAT 90–94
[2025-08-22 06:45] LABS: BASO # 0.0 10^3/uL (0.0-0.2); BASO % 0.3 % (0.0-1.0); EOS # 0.0 10^3/uL (0.0-0.5); EOS % 0.0 % (0.0-3.0); LYMPH # 0.8 10^3/uL (1.5-5.0); LYMPH % 11.0 % (24.0-44.0); MONO # 0.2 10^3/uL (0.0-0.8); MONO % 2.4 % (2.0-8.0); NEUTROPHILS # 6.5 10^3/uL (1.5-8.5); NEUTROPHILS % 86.0 % (36.0-66.0); PLATELET COUNT, AUTOMATED 144 10^3/uL (150-450)
[2025-08-22 07:03] LABS: CALCIUM LEVEL 7.9 MG/DL (8.3-10.6); CARBON DIOXIDE LEVEL 28 MMOL/L (20-31); CHLORIDE LEVEL 106 MMOL/L (98-107); CREATININE FOR GFR 0.67 MG/DL (0.70-1.30); GLOMERULAR FILTRATION RATE > 90.0 (>42); MAGNESIUM LEVEL 2.2 MG/DL (1.8-2.4); PHOSPHORUS LEVEL 2.7 MG/DL (2.4-5.1); POTASSIUM SERUM 5.0 MMOL/L (3.5-5.1); SODIUM LEVEL 141 MMOL/L (136-145)
[2025-08-22] MEDS ORDERED: CLOPIDOGREL 75 MG TAB PO SCH (09:00)
[2025-08-22] MEDS ORDERED: SPIRONOLACTONE 25 MG TAB PO SCH (09:00)
[2025-08-22] MEDS: ASPIRIN 81 MG ENTERIC TABLET PO SCH (09:37)
[2025-08-22] MEDS: guaiFENesin ER TABLET 600 MG TAB PO SCH (09:38)
[2025-08-22] MEDS ORDERED: ELIQ5TAB PO (10:16)
[2025-08-22] MEDS: PATIROMER SORBITEX CALCIUM 8.4GM POWDER PACKET PO ONE (10:45)
[2025-08-22] MEDS: DOXYCYCLINE HYCLATE 100 MG TABLET PO SCH (11:53)
[2025-08-22] MEDS: predniSONE 20 MG TAB PO SCH (11:53)
[2025-08-23 03:45] VITALS: BP 119/72; TEMP 97.3; O2SAT 90
[2025-08-23 07:36] VITALS: BP 143/67; TEMP 97.3; O2SAT 89
[2025-08-23] MEDS: CEFPODOXIME PROXETIL 200 MG TABLET PO SCH (08:49)
[2025-08-23 08:50] VITALS: BP 143/67
[2025-08-23 09:24] LABS: PLATELET COUNT, AUTOMATED 165 10^3/uL (150-450)
[2025-08-23 09:35] LABS: CALCIUM LEVEL 8.3 MG/DL (8.3-10.6); CARBON DIOXIDE LEVEL 31 MMOL/L (20-31); CHLORIDE LEVEL 107 MMOL/L (98-107); CREATININE FOR GFR 0.66 MG/DL (0.70-1.30); GLOMERULAR FILTRATION RATE > 90.0 (>42); MAGNESIUM LEVEL 1.8 MG/DL (1.8-2.4); PHOSPHORUS LEVEL 2.1 MG/DL (2.4-5.1); POTASSIUM SERUM 4.2 MMOL/L (3.5-5.1); SODIUM LEVEL 144 MMOL/L (136-145)
[2025-08-23 10:00] LABS: ATYPICAL LYMPH 5 % (0-5); LYMPHOCYTES 8 % (16-44); MONOCYTES 1 % (0-5); NEUTROPHILS 75 % (28-66); PLASMA CELL 1 % (0-0)
[2025-08-23 10:02] LABS: PLATELET ESTIMATE NORMAL (NORMAL)
[2025-08-23 10:03] LABS: PLATELET CLUMPS SMALL AMT
[2025-08-23 10:06] VITALS: O2SAT 90
[2025-08-23] MEDS ORDERED: DOXY100C3 PO (10:08)
[2025-08-23] MEDS ORDERED: ASPI81TA26 PO (10:08)
[2025-08-23] MEDS ORDERED: MUCI1TAB16 PO (10:08)
[2025-08-23] MEDS ORDERED: PRED10TA2 PO (10:08)
[2025-08-23] MEDS ORDERED: CARV6.25 PO (10:08)
[2025-08-23] MEDS ORDERED: LISI10TA22 PO (10:08)
[2025-08-23] MEDS ORDERED: CEFP200T PO (10:08)
[2025-08-23] MEDS ORDERED: ANOR1AER PO (10:08)
== END 2025-08-23 12:39 | disposition home or self-care (01) | DRG 871 ==
LOC: EDBD 12:53 → M ED 12:53 → M ED INP 20:23 → EEVIPCON 20:23 → M ICU 21:35 → M PCU 08-21 15:35
PROVIDERS: ADMIT Internal Medicine; ATTEND Internal Medicine
PROC: B246ZZZ Ultrasonography of Right and Left Heart (ICD-10-PCS; principal; 2025-08-21)
DX: A41.9 Sepsis, unspecified organism (principal); J96.01 Acute respiratory failure with hypoxia; J12.1 Respiratory syncytial virus pneumonia; R65.21 Severe sepsis with septic shock; J44.1 Chronic obstructive pulmonary disease with (acute) exacerbation; J44.0 Chronic obstructive pulmonary disease with (acute) lower respiratory infection; N17.9 Acute kidney failure, unspecified; I25.10 Atherosclerotic heart disease of native coronary artery without angina pectoris; F17.200 Nicotine dependence, unspecified, uncomplicated; I48.91 Unspecified atrial fibrillation; J43.9 Emphysema, unspecified; I25.2 Old myocardial infarction; Z95.3 Presence of xenogenic heart valve; Z79.02 Long term (current) use of antithrombotics/antiplatelets; Z79.899 Other long term (current) drug therapy; Z86.73 Personal history of transient ischemic attack (TIA), and cerebral infarction without residual deficits